=== PATIENT | male | born 1945 | race Caucasian/White ===

== ENCOUNTER 2024-09-25 22:13 | Inpatient (IN) | payer MEDICARE, BC ==
[2024-09-25 22:41] LABS: HEMATOCRIT 37.6 % (40.0-52.0); HEMOGLOBIN 12.5 g/dL (14.0-18.0); MEAN CORPUSCULAR HGB CONC 33.2 g/dL (32.0-36.0); MEAN CORPUSCULAR VOLUME 90.2 fL (78.0-93.0); PLATELET COUNT,PLT 327 x10^3/uL (130-400); RED BLOOD CELL COUNT 4.17 x10^6/uL (4.5-6.0)
[2024-09-25 22:48] LABS: WHITE BLOOD CELL COUNT,WBC 20.8 x10^3/uL (4.0-10.0)
[2024-09-25 22:57] LABS: HCO3 VENOUS,POC 15 mmol/L (22-29); O2 SATURATION VENOUS,POC 91 %; PCO2 VENOUS,POC 24 mmHg (41-51); PH VENOUS,POC 7.41 pH (7.32-7.43); PO2 VENOUS,POC 59 mmHg
[2024-09-25 23:00] LABS: INR 1.8 (0.9-1.1); PROTHROMBIN TIME 18.8 SEC (9.6-12.0); PTT,PARTIAL THROMBOPLSTIN TIME 33.2 SEC (23.5-33.2)
[2024-09-25 23:06] LABS: BAND PERCENT MAN 2 % (0-6); HYPERSEGMENTED NEUTROPHILS OCCASIONAL; LYMPHOCYTES ABSOLUTE MAN 1.5 x10^3/uL (1.0-4.8); LYMPHOCYTES PERCENT MAN 7 % (25-50); MONOCYTES PERCENT MAN 5 % (2-11); NEUTROPHILS ABSOLUTE MAN 18.3 x10^3/uL (1.8-7.7); PLATELET COUNT ESTIMATE ADEQUATE; SEG NEUTROPHILS PERCENT MAN 86 % (50-80)
[2024-09-25 23:08] LABS: LACTIC ACID 2.8 mmol/L (0.4-2.0)
[2024-09-25 23:12] LABS: A/G RATIO 0.53; ALANINE AMINOTRANSFERASE,ALT 35 U/L (16-63); ALBUMIN 2.7 g/dL (3.4-5.0); ALKALINE PHOSPHATASE 91 U/L (46-116); ASPARTATE AMNIOTRANSFERASE,AST 25 U/L (15-37); BILIRUBIN TOTAL 0.8 mg/dL (0.2-1.0); BLOOD UREA NITROGEN,BUN 42 mg/dL (7-18); CALCIUM 10.1 mg/dL (8.5-10.1); CARBON DIOXIDE,CO2 25 mmol/L (21-32); CHLORIDE,CL 100 mmol/L (98-107); CREATININE 2.2 mg/dL (0.70-1.30); GLUCOSE RANDOM 335 mg/dL (70-99); MAGNESIUM 2.2 mg/dL (1.8-2.4); POTASSIUM,K 3.9 mmol/L (3.5-5.1); PROTEIN TOTAL,TP 7.8 g/dL (6.4-8.2); SODIUM,NA 139 mmol/L (136-145); TSH ULTRASENSITIVE 0.627 uIU/mL (0.358-3.74)
[2024-09-25 23:14] LABS: ANION GAP 17.9 mmol/L (5-15); ESTIMATED GFR 30 mL/min (>=60)
[2024-09-25 23:15] LABS: C-REACTIVE PROTEIN 32.83 mg/dL (<=0.50); ETHANOL BLOOD MEDICAL 0 mg/dL (0-3)
[2024-09-25] MEDS: Lactated Ringers 1,000 ML IV ONE (23:17)
[2024-09-25] MEDS: cefTRIAXone 1 GM Vial IVPUSH ONE (23:17)
[2024-09-25] MEDS: methylPREDNISolone Sodium Succinate 125 MG/2 ML SDV IV ONE (23:37)
[2024-09-25] MEDS: Azithromycin 500 MG in Sodium Chloride 0.9% 250 ML IV ONE (23:38)
[2024-09-26 00:30] LABS: AMPHETAMINES SCREEN, URINE NEGATIVE (NEGATIVE); BARBITURATE SCREEN,URINE NEGATIVE (NEGATIVE); BENZODIAZEPINES SCREEN,URINE NEGATIVE (NEGATIVE); COCAINE METABOLITES,URINE NEGATIVE (NEGATIVE); METHADONE SCREEN, URINE NEGATIVE (NEGATIVE); METHAMPHETAMINE SCREEN, URINE NEGATIVE (NEGATIVE); OXYCODONE SCREEN,URINE NEGATIVE (NEGATIVE); PCP SCREEN,URINE NEGATIVE (NEGATIVE); THC SCREEN,URINE 50 NG/ML NEGATIVE (NEGATIVE)
[2024-09-26 00:31] LABS: BUPRENORPHINE SCREEN,URINE NEGATIVE (NEGATIVE)
[2024-09-26 00:45] LABS: APPEARANCE,URINE CLOUDY (CLEAR); BILIRUBIN,URINE SMALL (NEGATIVE); COLOR,URINE DARK YELLOW (YELLOW); GLUCOSE,URINE 100 mg/dL (NEGATIVE); KETONES,URINE NEGATIVE (NEGATIVE); LEUKOCYTE ESTERASE,URINE NEGATIVE (NEGATIVE); NITRITE,URINE NEGATIVE (NEGATIVE); OCCULT BLOOD,URINE MODERATE (NEGATIVE); PH,URINE 5.5 (5.0-8.0); PROTEIN,URINE 100 mg/dL (NEGATIVE)
[2024-09-26 00:57] LABS: RBC,URINE 0-5 /HPF (NOT SEEN); WBC,URINE 0-5 /HPF (NOT SEEN)
[2024-09-26 00:58] LABS: AMORPHOUS SEDIMENT,URINE MANY; BACTERIA,URINE MODERATE /HPF (NOT SEEN); HYALINE CASTS,URINE MODERATE; MUCUS,URINE MODERATE /LPF (NOT SEEN); RENAL EPITHELIAL CELLS,URINE RARE /HPF (NOT SEEN); SQUAMOUS EPITHELIAL CELLS,UR RARE /HPF (NOT SEEN); TRIPLE PHOSPHATE CRYSTALS,UR RARE /HPF (NOT SEEN)
[2024-09-26 00:59] LABS: GRANULAR CASTS,URINE MODERATE
[2024-09-26] MEDS: Lactated Ringers 1,000 ML IV ONE (01:00)
[2024-09-26] MEDS: LORazepam 2 MG/ML SDV IVPUSH ONE ×2 (01:26→01:50)
[2024-09-26] MEDS ORDERED: Albuterol/Ipratropium 3.0-0.5 MG/3 ML Neb Soln NEB PRN (04:17)
[2024-09-26] MEDS ORDERED: Melatonin 3 MG Tab PO PRN (04:20)
[2024-09-26] MEDS ORDERED: Docusate Sodium 100 MG Cap PO PRN (04:20)
[2024-09-26] MEDS: Sodium Chloride 0.9% 1,000 ML IV SCH ×2 (04:41→15:12)
[2024-09-26 07:14] LABS: HEMATOCRIT 32.4 % (40.0-52.0); HEMOGLOBIN 10.7 g/dL (14.0-18.0); MEAN CORPUSCULAR HEMOGLOBIN 30.1 pg (26.0-32.0); MEAN CORPUSCULAR VOLUME 91.3 fL (78.0-93.0); PLATELET COUNT,PLT 310 x10^3/uL (130-400); RED BLOOD CELL COUNT 3.55 x10^6/uL (4.5-6.0)
[2024-09-26] MEDS: Insulin Regular, Human 100 Units/ML 10 ML Vial SUBCUT SCH (07:15)
[2024-09-26 07:29] LABS: CALCIUM 9.4 mg/dL (8.5-10.1); CREATININE 1.7 mg/dL (0.70-1.30); EST CRCL DRUG DOSING (CG) 39.94 mL/min; POTASSIUM,K 4.4 mmol/L (3.5-5.1)
[2024-09-26 07:31] LABS: WHITE BLOOD CELL COUNT,WBC 20.3 x10^3/uL (4.0-10.0)
[2024-09-26 07:32] LABS: ANION GAP 13.4 mmol/L (5-15)
[2024-09-26 08:03] LABS: LYMPHOCYTES ABSOLUTE MAN 0.8 x10^3/uL (1.0-4.8); LYMPHOCYTES PERCENT MAN 4 % (25-50); MONOCYTES ABSOLUTE MAN 0.4 x10^3/uL (0.0-0.8); MONOCYTES PERCENT MAN 2 % (2-11); NEUTROPHILS ABSOLUTE MAN 19.1 x10^3/uL (1.8-7.7); SEG NEUTROPHILS PERCENT MAN 94 % (50-80)
[2024-09-26 08:04] LABS: HYPERSEGMENTED NEUTROPHILS OCCASIONAL; PLATELET COUNT ESTIMATE ADEQUATE
[2024-09-26] MEDS ORDERED: hydrALAZINE 20 MG/ML SDV IVPUSH PRN (10:23)
[2024-09-26] MEDS: Tamsulosin 0.4 MG Cap.ER PO SCH (10:50)
[2024-09-26] MEDS: Lisinopril 10 MG Tab PO SCH (10:50)
[2024-09-26] MEDS: Metoprolol Succinate 25 MG Tab.ER PO SCH (10:50)
[2024-09-26] MEDS: Multivitamin Tab PO SCH (10:50)
[2024-09-26] MEDS: Pantoprazole 40 MG Tab.CR PO SCH (10:50)
[2024-09-26] MEDS: Vitamin B Complex Tab PO SCH (10:51)
[2024-09-26] MEDS: Thiamine 100 MG Tab PO SCH (10:52)
[2024-09-26] MEDS: cefTRIAXone 1 GM Vial IVPUSH SCH (11:25)
[2024-09-26] MEDS: Azithromycin 250 MG Tab PO SCH (11:29)
[2024-09-26] MEDS: Azithromycin 500 MG in Sodium Chloride 0.9% 250 ML IV SCH (11:34)
[2024-09-26] MEDS: LORazepam 2 MG/ML SDV IVPUSH PRN (15:53)
[2024-09-26] MEDS: Haloperidol Lactate 5 MG/ML SDV IV PRN (19:50)
[2024-09-26] MEDS: Enoxaparin 40 MG/0.4 ML Syringe SUBCUT SCH (20:23)
[2024-09-26] MEDS: Rosuvastatin 20 MG Tab PO SCH (20:23)
[2024-09-27 08:25] LABS: HEMATOCRIT 33.7 % (40.0-52.0); HEMOGLOBIN 11.2 g/dL (14.0-18.0); MEAN CORPUSCULAR HEMOGLOBIN 30.1 pg (26.0-32.0); MEAN CORPUSCULAR HGB CONC 33.2 g/dL (32.0-36.0); MEAN CORPUSCULAR VOLUME 90.6 fL (78.0-93.0); PLATELET COUNT,PLT 301 x10^3/uL (130-400); RED BLOOD CELL COUNT 3.72 x10^6/uL (4.5-6.0)
[2024-09-27 08:29] LABS: CALCIUM 9.6 mg/dL (8.5-10.1); CREATININE 1.3 mg/dL (0.70-1.30); EST CRCL DRUG DOSING (CG) 52.23 mL/min; POTASSIUM,K 4.2 mmol/L (3.5-5.1)
[2024-09-27 08:30] LABS: ANION GAP 11.2 mmol/L (5-15)
[2024-09-27 08:38] LABS: LYMPHOCYTES ABSOLUTE MAN 0.7 x10^3/uL (1.0-4.8); LYMPHOCYTES PERCENT MAN 3 % (25-50); MONOCYTES ABSOLUTE MAN 0.5 x10^3/uL (0.0-0.8); MONOCYTES PERCENT MAN 2 % (2-11); NEUTROPHILS ABSOLUTE MAN 21.9 x10^3/uL (1.8-7.7); SEG NEUTROPHILS PERCENT MAN 95 % (50-80)
[2024-09-27] MEDS: Sodium Chloride 0.9% 10 ML Syringe FLUSH PRN (10:02)
[2024-09-27] MEDS: busPIRone 5 MG Tab PO SCH (10:42)
[2024-09-27] MEDS: ARIPiprazole 5 MG Tab PO SCH (20:10)
[2024-09-27] MEDS ORDERED: Non-Formulary Medication 1 Each (Aripiprazole 2 MG Tablet) PO SCH (21:00)
[2024-09-28] MEDS: Tamsulosin 0.4 MG Cap.ER PO SCH (10:00)
[2024-09-28] MEDS: Clopidogrel 75 MG Tab PO SCH (10:00)
[2024-09-28] MEDS: Acetaminophen 325 MG Tab PO PRN (10:13)
[2024-09-28] MEDS: Azithromycin 250 MG Tab PO SCH (11:06)
[2024-09-29 10:29] LABS: CALCIUM 9.1 mg/dL (8.5-10.1); CREATININE 1.2 mg/dL (0.70-1.30); EOSINOPHILS ABSOLUTE AUTO 0.1 x10^3/uL (0.0-0.5); EOSINOPHILS PERCENT AUTO 0.4 % (0.0-4.0); EST CRCL DRUG DOSING (CG) 56.58 mL/min; HEMATOCRIT 34.5 % (40.0-52.0); HEMOGLOBIN 11.6 g/dL (14.0-18.0); IMMATURE GRAN ABSOLUTE AUTO 0.13 x10^3/uL (0.00-0.07); LYMPHOCYTES ABSOLUTE AUTO 1.8 x10^3/uL (1.0-4.8); MEAN CORPUSCULAR HEMOGLOBIN 29.9 pg (26.0-32.0); MEAN CORPUSCULAR HGB CONC 33.6 g/dL (32.0-36.0); MEAN CORPUSCULAR VOLUME 88.9 fL (78.0-93.0); MONOCYTES ABSOLUTE AUTO 0.7 x10^3/uL (0.0-0.8); MONOCYTES PERCENT AUTO 4.4 % (2.0-11.0); NEUTROPHILS ABSOLUTE AUTO 12.5 x10^3/uL (1.8-7.7); NEUTROPHILS PERCENT AUTO 82.3 % (50.0-80.0); PLATELET COUNT,PLT 280 x10^3/uL (130-400); POTASSIUM,K 3.4 mmol/L (3.5-5.1); RED BLOOD CELL COUNT 3.88 x10^6/uL (4.5-6.0); WHITE BLOOD CELL COUNT,WBC 15.2 x10^3/uL (4.0-10.0)
[2024-09-29 10:31] LABS: ANION GAP 12.4 mmol/L (5-15)
[2024-09-30 07:08] LABS: HEMATOCRIT 34.2 % (40.0-52.0); HEMOGLOBIN 11.4 g/dL (14.0-18.0); MEAN CORPUSCULAR HEMOGLOBIN 29.8 pg (26.0-32.0); MEAN CORPUSCULAR HGB CONC 33.3 g/dL (32.0-36.0); MEAN CORPUSCULAR VOLUME 89.5 fL (78.0-93.0); RED BLOOD CELL COUNT 3.82 x10^6/uL (4.5-6.0); WHITE BLOOD CELL COUNT,WBC 15.3 x10^3/uL (4.0-10.0)
[2024-09-30 07:54] LABS: ANION GAP 10.6 mmol/L (5-15); CALCIUM 9.1 mg/dL (8.5-10.1); CREATININE 1.1 mg/dL (0.70-1.30); EST CRCL DRUG DOSING (CG) 61.73 mL/min; POTASSIUM,K 3.6 mmol/L (3.5-5.1)
== END 2024-09-30 18:50 | disposition home or self-care (01) | DRG 871 ==
LOC: VM.ED 22:13 → VM.MS 09-26 02:43
PROVIDERS: ADMIT Family Medicine; ATTEND Family Medicine
PROC: 0T9B70Z Drainage of Bladder with Drainage Device, Via Natural or Artificial Opening (ICD-10-PCS; principal; 2024-09-26)
PROC: 3E03329 Introduction of Other Anti-infective into Peripheral Vein, Percutaneous Approach (ICD-10-PCS; 2024-09-26)
DX: A41.9 Sepsis, unspecified organism (principal); G93.41 Metabolic encephalopathy; J18.9 Pneumonia, unspecified organism; N17.9 Acute kidney failure, unspecified; R41.0 Disorientation, unspecified; F05 Delirium due to known physiological condition; F33.2 Major depressive disorder, recurrent severe without psychotic features; R65.20 Severe sepsis without septic shock; I25.10 Atherosclerotic heart disease of native coronary artery without angina pectoris; E11.9 Type 2 diabetes mellitus without complications; R45.1 Restlessness and agitation; F91.8 Other conduct disorders; I10 Essential (primary) hypertension; K21.9 Gastro-esophageal reflux disease without esophagitis; F41.1 Generalized anxiety disorder; E11.51 Type 2 diabetes mellitus with diabetic peripheral angiopathy without gangrene; E78.00 Pure hypercholesterolemia, unspecified; J45.909 Unspecified asthma, uncomplicated; E86.0 Dehydration; R09.02 Hypoxemia; Z95.1 Presence of aortocoronary bypass graft; Z85.46 Personal history of malignant neoplasm of prostate; Z88.8 Allergy status to other drugs, medicaments and biological substances; Z79.899 Other long term (current) drug therapy; Z79.51 Long term (current) use of inhaled steroids; Z79.84 Long term (current) use of oral hypoglycemic drugs; Z87.19 Personal history of other diseases of the digestive system; Z87.891 Personal history of nicotine dependence
CPT/HCPCS: 36415; 70450; 71045; 71250; 74176; 80048; 80053; 80305-QW; 80307; 81001; 82140; 82803; 82947; 83605; 83735; 84443; 84484; 85025; 85027; 85610; 85730; 86140; 87040; 87086; 87428-QW; 93005; 93010; 94760; 97129-GO; 97130-GO; 97161-GP; 97165-GO; 99223; 99232; 99233; 99239; 99284; A9270-GY; J0456; J0696; J1630; J1650; J2060; J2919; J7030; J7120; Q3014

== ENCOUNTER 2025-02-04 19:32 | Emergency (ER) | payer MEDICARE, BC ==
[2025-02-04 20:11] LABS: BASOPHILS ABSOLUTE AUTO 0.0 x10^3/uL (0.0-0.2); BASOPHILS PERCENT AUTO 0.1 % (0.2-1.2); EOSINOPHILS ABSOLUTE AUTO 0.0 x10^3/uL (0.0-0.5); EOSINOPHILS PERCENT AUTO 0.1 % (0.0-4.0); IMMATURE GRAN ABSOLUTE AUTO 0.01 x10^3/uL (0.00-0.07); IMMATURE GRAN PERCENT AUTO 0.10 % (0.00-0.43); LYMPHOCYTES ABSOLUTE AUTO 1.6 x10^3/uL (1.0-4.8); LYMPHOCYTES PERCENT AUTO 20.1 % (25.0-50.0); MONOCYTES ABSOLUTE AUTO 0.5 x10^3/uL (0.0-0.8); MONOCYTES PERCENT AUTO 6.0 % (2.0-11.0); NEUTROPHILS ABSOLUTE AUTO 5.8 x10^3/uL (1.8-7.7); NEUTROPHILS PERCENT AUTO 73.6 % (50.0-80.0); PLATELET COUNT,PLT 241 x10^3/uL (130-400); RED BLOOD CELL COUNT 3.85 x10^6/uL (4.5-6.0); WHITE BLOOD CELL COUNT,WBC 8.0 x10^3/uL (4.0-10.0)
[2025-02-04 20:25] LABS: A/G RATIO 1.19; ALANINE AMINOTRANSFERASE,ALT 20 U/L (16-63); ASPARTATE AMNIOTRANSFERASE,AST 16 U/L (15-37); BILIRUBIN TOTAL 0.4 mg/dL (0.2-1.0); BLOOD UREA NITROGEN,BUN 18 mg/dL (7-18); CARBON DIOXIDE,CO2 27 mmol/L (21-32); CHLORIDE,CL 100 mmol/L (98-107); CREATININE 2.0 mg/dL (0.70-1.30); GLUCOSE RANDOM 87 mg/dL (70-99); POTASSIUM,K 4.3 mmol/L (3.5-5.1); PROTEIN TOTAL,TP 7.0 g/dL (6.4-8.2); SODIUM,NA 138 mmol/L (136-145)
[2025-02-04 20:28] LABS: ESTIMATED GFR 34 mL/min (>=60)
[2025-02-04 20:37] LABS: AMPHETAMINE, URINE NEGATIVE (NEGATIVE); BARBITUATES,URINE NEGATIVE (NEGATIVE); BENZODIAZEPINES,URINE POSITIVE (NEGATIVE); BUPRENORPHINE,URINE NEGATIVE (NEGATIVE); MARIJUANA,URINE NEGATIVE (NEGATIVE); METHAMPHETAMINE,URINE NEGATIVE (NEGATIVE); METHYLENEDIOXYMETHAMP,UR NEGATIVE (NEGATIVE); OPIATES,URINE NEGATIVE (NEGATIVE); OXYCODONE,URINE NEGATIVE (NEGATIVE); PHENCYCLIDINE,URINE NEGATIVE
== END 2025-02-04 23:27 | disposition home or self-care (01) ==
LOC: VM.ED 19:32
DX: R44.1 Visual hallucinations (principal); R41.82 Altered mental status, unspecified; I25.10 Atherosclerotic heart disease of native coronary artery without angina pectoris; I10 Essential (primary) hypertension; E78.00 Pure hypercholesterolemia, unspecified; J45.909 Unspecified asthma, uncomplicated; K21.9 Gastro-esophageal reflux disease without esophagitis; E11.9 Type 2 diabetes mellitus without complications; Z88.8 Allergy status to other drugs, medicaments and biological substances; Z79.51 Long term (current) use of inhaled steroids; Z79.84 Long term (current) use of oral hypoglycemic drugs; Z79.899 Other long term (current) drug therapy
CPT/HCPCS: 36415; 80053; 80305-QW; 85025; 99285